=== PATIENT | female | born 1995 | race Hispanic/Latino ===

== ENCOUNTER 2018-08-24 01:13 | Emergency (ER) | payer OTHER, SELFPAY ==
[2018-08-24 02:27] LABS: Absolute Lymphocytes (CBC) 1.3 K/uL (0.7-4.9); Absolute Monocytes 0.6 K/uL (0.1-1.3); Absolute Neutrophil 4.9 K/uL (1.8-8.0); Basophils % 0.2 % (0-1.3); Eosinophils % 0.6 % (0-4.4); Hematocrit 37.6 % (36.0-45.0); Lymphocytes % 18.6 % (15.3-44.8); MPV 7.5 fL (7.6-11.3); Monocytes % 8.8 % (3.3-12.3); RBC Red Blood Cell Count 4.85 M/uL (3.86-4.86)
[2018-08-24] MEDS ORDERED: MEPERIDINE HCL 50 MG/ML AMP ONE (02:28)
[2018-08-24] MEDS ORDERED: ONDANSETRON 4 MG/2 ML VIAL ONE (02:28)
[2018-08-24 02:46] LABS: Alkaline Phosphatase 135 U/L (45-117); BUN Blood Urea Nitrogen 13 mg/dL (7-18); Bicarbonate 27 mmol/L (21-32); Bilirubin Direct 0.4 mg/dL (0-0.2); Glucose Level 99 mg/dL (74-106); Lipase 87 U/L (73-393); Protein, Total 8.3 g/dL (6.4-8.2); Sodium Level 138 mmol/L (136-145)
[2018-08-24 02:48] LABS: ALT/SGPT 382 U/L (12-78); AST/SGOT 524 U/L (15-37)
--- NOTE | 2018-08-24 04:26 | ER ---
Nurse's Notes [facility] Name: Natalie Chris Age: 22 yrs Sex: Female : 1995 Arrival Date: 08/24/2018 Time: 01:26 Bed 16 Private MD: Diagnosis: Acute cholecystitis. Cholelitthiasis. Elevated liver functions Presentation: 08/24 01:49 Presenting complaint: Patient states: epigastric pain 8/10 scale. characterized as rv sharp pain. started after eating 4pm yesterday. vomited, took tums and maalox, and tylenol for pain. tried to eat again, vomited again after. also had episodes of diarrhea. one week ago, was seen on another facility for the same symptoms. diiagnosed as UTI, given antibiotic treatment after discharge. Transition of care: patient was not received from another setting of care. Onset of symptoms was August 23, 2018 at 16:00. Risk Assessment: Do you want to hurt yourself or someone else? Patient reports no desire to harm self or others. Care prior to arrival: None. 01:49 Method Of Arrival: Ambulatory rv 01:49 Acuity: CHANA 3 rv 02:25 Initial Sepsis Screen: Does the patient meet any 2 criteria? No. Patient's initial jd3 sepsis screen is negative. Does the patient have a suspected source of infection? No. Patient's initial sepsis screen is negative. Triage Assessment: 01:54 General: Appears in no apparent distress. uncomfortable, Behavior is calm, cooperative. rv Pain: Complains of pain in epigastric Pain currently is 8 out of 10 on a pain scale. Quality of pain is described as sharp. EENT: No signs and/or symptoms were reported regarding the EENT system. Neuro: Level of Consciousness is awake, alert, obeys commands, Oriented to person, place, time, situation. Cardiovascular: Patient's skin is warm and dry. Respiratory: Airway is patent. GI: Abdomen is round non-distended, Reports upper abdominal pain, diarrhea, nausea, vomiting. : No signs and/or symptoms were reported regarding the genitourinary system. Derm: Skin is intact. Musculoskeletal: No signs and/or symptoms reported regarding the musculoskeletal system. DEPUTY K 9: 01:53 LMP 07/16/2018 rv Historical: - Allergies: 01:54 No Known Allergies; rv - Home Meds: 01:54 None [Active]; rv - PMHx: 01:54 None; rv - PSHx: 01:54 ; rv - Immunization history:: Adult Immunizations up to date. - Social history:: Smoking status: Patient/guardian denies using tobacco, never smoked. - Ebola Screening: : No symptoms or risks identified at this time. Screenin:53 Abuse screen: Denies threats or abuse. Nutritional screening: No deficits noted. jd3 Tuberculosis screening: No symptoms or risk factors identified. Fall Risk Ambulatory Aid- None/Bed Rest/Nurse Assist (0 pts). Gait- Normal/Bed Rest/Wheelchair (0 pts) Mental Status- Oriented to own ability (0 pts). Total Mathis Fall Scale indicates No Risk (0-24 pts). Assessment: 01:50 General: Appears in no apparent distress. uncomfortable, Behavior is calm, cooperative, jd3 appropriate for age. Pain: Complains of pain in right upper quadrant and left upper quadrant Quality of pain is described as sharp, tender. Neuro: Level of Consciousness is awake, alert, obeys commands, Oriented to person, place, time, situation, Appropriate for age. Cardiovascular: Capillary refill < 3 seconds Patient's skin is warm and dry. Respiratory: Airway is patent Respiratory effort is even, unlabored, Respiratory pattern is regular, symmetrical. GI: Abdomen is round non-distended, Bowel sounds present X 4 quads. Abd is soft Abdomen is tender to palpation in right upper quadrant and left upper quadrant Reports diarrhea, nausea, vomiting. : No signs and/or symptoms were reported regarding the genitourinary system. EENT: No signs and/or symptoms were reported regarding the EENT system. Derm: Skin is intact, Skin is dry, Skin is normal, Skin temperature is warm. Musculoskeletal: Circulation, motion, and sensation intact. Range of motion: intact in all extremities. 03:05 Reassessment: Patient appears in no apparent distress at this time. Patient and/or jd3 family updated on plan of care and expected duration. Pain level reassessed. Patient is alert, oriented x 3, equal unlabored respirations, skin warm/dry/pink. Patient states feeling better. 04:31 Reassessment: Patient appears in no apparent distress at this time. Patient and/or jd3 family updated on plan of care and expected duration. Pain level reassessed. Patient is alert, oriented x 3, equal unlabored respirations, skin warm/dry/pink. Patient states feeling better. 04:55 Reassessment: report given to Noris ALARCON at [facility]. jd3 Vital Signs: 01:53 BP 128 / 88; Pulse 73; Resp 17; Temp 98.1; Pulse Ox 100% ; Weight 81.65 kg; Height 5 rv ft. 1 in. (154.94 cm); Pain 8/10; 03:05 BP 125 / 88; Pulse 65; Resp 17 S; Pulse Ox 100% on R/A; jd3 04:28 BP 105 / 63; Pulse 82; Resp 16 S; Pulse Ox 98% on R/A; jd3 05:03 BP 110 / 61; Pulse 76; Resp 17 S; Pulse Ox 99% on R/A; jd3 01:53 Body Mass Index 34.01 (81.65 kg, 154.94 cm) rv ED Course: 01:26 Patient arrived in ED. am2 01:47 Sander Mustafa, AGNES is Primary Nurse. jd3 01:53 Triage completed. rv 01:53 Patient has correct armband on for positive identification. Bed in low position. Call jd3 light in reach. Side rails up X 1. Adult w/ patient. 01:53 Arm band placed on. jd3 01:55 Inserted saline lock: 20 gauge in left antecubital area, using aseptic technique. Blood jd3 collected. [facility]. 01:58 Marcello Samano MD is Attending Physician. pkl 02:47 Notified ED physician of a critical lab result(s). ast of 524, alt of 382. fc 04:11 CT Abd/Pelvis - W/Contrast In Process Unspecified. EDMS 04:56 No provider procedures requiring assistance completed. Patient transferred, IV remains jd3 in place. Administered Medications: 02:25 Drug: Demerol 50 mg Route: IVP; Site: left antecubital; jd3 03:25 Follow up: Response: No adverse reaction jd3 02:25 Drug: Zofran 4 mg Route: IVP; Site: left antecubital; jd3 03:25 Follow up: Response: No adverse reaction jd3 04:43 Drug: NS 0.9% 1000 ml Route: IV; Rate: 125 ml/hr; Site: left antecubital; jd3 05:03 Follow up: Response: No adverse reaction; IV Status: Infusion continued upon transfer jd3 04:45 CANCELLED (Other Intervention Used): Mefoxin 1 grams IVPB once over 30 mins; (mix in 50 jd3 mL NS) 04:46 Drug: Mefoxin 1 grams Route: IVPB; Infused Over: 5 mins; Site: left antecubital; jd3 05:01 Follow up: Response: No adverse reaction; IV Status: Completed infusion; IV Intake: [id number] Intake: 05:01 IV: 10ml; Total: 10ml. jd3 Outcome: 04:25 ER care complete, transfer ordered by . pkl 05:30 Transferred by ground EMS to [facility], Transfer form jd3 completed. X-rays sent w/ patient. Note: report given to [facility] 05:30 Condition: stable 05:30 Instructed on the need for transfer, Demonstrated understanding of instructions. 05:31 Patient left the ED. jd3 Signatures: Dispatcher [employer] EDMS Marcello Samano MD MD pkImra García, RN RN Sarah Mcgee Jonathon, RN RN jLouis Manzo, RN RN rv Corrections: (The following items were deleted from the chart) 02:25 01:55 Inserted saline lock: 20 gauge in right antecubital area, using aseptic jd3 technique. Blood collected. finished goods planner jd3 04:31 03:05 Reassessment: Patient appears in no apparent distress at this time. Patient jd3 and/or family updated on plan of care and expected duration. Pain level reassessed. Patient is alert, oriented x 3, equal unlabored respirations, skin warm/dry/pink. jd3 04:45 04:40 Mefoxin 1 grams IVPB in left antecubital over 30 mins jd3 jd3
--- NOTE | 2018-08-24 04:26 | EDPHYS ---
Physician Documentation [facility] Name: Natalie Chris Age: 22 yrs Sex: Female : 1995 Arrival Date: 08/24/2018 Time: 01:26 Bed 16 Private MD: ED Physician Marcello Samano HPI: 08/24 02:10 This 22 yrs old Female presents to ER via Ambulatory with complaints of pkl Abdominal Pain. 02:10 The patient presents with abdominal pain in the upper abdomen. Onset: The pkl symptoms/episode began/occurred today, 10 hour(s) ago. The symptoms do not radiate. Associated signs and symptoms: Pertinent positives: nausea and vomiting. GANG RIDER: 01:53 LMP 07/16/2018 rv Historical: - Allergies: 01:54 No Known Allergies; rv - Home Meds: 01:54 None [Active]; rv - PMHx: 01:54 None; rv - PSHx: 01:54 ; rv - Immunization history:: Adult Immunizations up to date. - Social history:: Smoking status: Patient/guardian denies using tobacco, never smoked. - Ebola Screening: : No symptoms or risks identified at this time. ROS: 02:10 Eyes: Negative for injury, pain, redness, and discharge, ENT: Negative for injury, pkl pain, and discharge, Neck: Negative for injury, pain, and swelling, Cardiovascular: Negative for chest pain, palpitations, and edema, Respiratory: Negative for shortness of breath, cough, wheezing, and pleuritic chest pain. 02:10 Abdomen/GI: Positive for abdominal pain, nausea and vomiting, of the right upper quadrant and left upper quadrant. 02:10 Back: Negative for acute changes. 02:10 : Negative for urinary symptoms. 02:10 MS/extremity: Negative for acute changes. 02:10 Skin: Negative for rash. 02:10 Neuro: Negative for altered mental status. Exam: 02:10 Head/Face: Normocephalic, atraumatic. Eyes: Pupils equal round and reactive to light, pkl extra-ocular motions intact. Lids and lashes normal. Conjunctiva and sclera are non-icteric and not injected. Cornea within normal limits. Periorbital areas with no swelling, redness, or edema. ENT: Nares patent. No nasal discharge, no septal abnormalities noted. Tympanic membranes are normal and external auditory canals are clear. Oropharynx with no redness, swelling, or masses, exudates, or evidence of obstruction, uvula midline. Mucous membranes moist. Neck: Trachea midline, no thyromegaly or masses palpated, and no cervical lymphadenopathy. Supple, full range of motion without nuchal rigidity, or vertebral point tenderness. No Meningismus. Chest/axilla: Normal chest wall appearance and motion. Nontender with no deformity. No lesions are appreciated. Cardiovascular: Regular rate and rhythm with a normal S1 and S2. No gallops, murmurs, or rubs. Normal PMI, no JVD. No pulse deficits. Respiratory: Lungs have equal breath sounds bilaterally, clear to auscultation and percussion. No rales, rhonchi or wheezes noted. No increased work of breathing, no retractions or nasal flaring. 02:10 Abdomen/GI: Bowel sounds: normal, Palpation: soft, mild abdominal tenderness, in the left upper quadrant. 02:10 Back: Exam negative for acute changes. 02:10 : Exam negative for acute changes. 02:10 Musculoskeletal/extremity: Exam is negative for acute changes. 02:10 Skin: Exam negative for rash. 02:10 Neuro: Orientation: is normal, Mentation: is normal, Cranial nerves: grossly normal, Motor: is normal. Vital Signs: 01:53 BP 128 / 88; Pulse 73; Resp 17; Temp 98.1; Pulse Ox 100% ; Weight 81.65 kg; Height 5 rv ft. 1 in. (154.94 cm); Pain 8/10; 03:05 BP 125 / 88; Pulse 65; Resp 17 S; Pulse Ox 100% on R/A; jd3 04:28 BP 105 / 63; Pulse 82; Resp 16 S; Pulse Ox 98% on R/A; jd3 05:03 BP 110 / 61; Pulse 76; Resp 17 S; Pulse Ox 99% on R/A; jd3 01:53 Body Mass Index 34.01 (81.65 kg, 154.94 cm) rv MDM: 01:58 Patient medically screened. pkl 04:23 Data reviewed: vital signs, nurses notes, lab test result(s), radiologic studies, CT pkl scan. 08/24 01:56 Order name: Basic Metabolic Panel [facility] 08/24 01:56 Order name: CBC with Diff jd3 08/24 01:56 Order name: Creatinine for Radiology jd3 08/24 01:56 Order name: Hepatic Function; Complete Time: 02:53 jd3 08/24 01:56 Order name: Lipase; Complete Time: 02:53 jd3 08/24 01:57 Order name: Basic Metabolic Panel; Complete Time: 02:53 EDMS 08/24 01:58 Order name: CBC with Automated Diff; Complete Time: 02:53 EDMS 08/24 01:58 Order name: Creatinine (Radiology Only); Complete Time: 02:53 EDMS 08/24 02:54 Order name: CT Abd/Pelvis - W/Contrast pkl 08/24 03:24 Order name: Urine Dipstick--Ancillary (enter results); Complete Time: 05:49 ag4 08/24 03:24 Order name: Urine --Ancillary (enter results); Complete Time: 05:49 ag4 08/24 01:56 Order name: IV Saline Lock; Complete Time: 01:55 jd3 08/24 01:56 Order name: Labs collected and sent; Complete Time: 02:02 jd3 08/24 02:11 Order name: Urine Dipstick-Ancillary (obtain specimen); Complete Time: 02:23 jd3 08/24 02:11 Order name: Urine Test (obtain specimen); Complete Time: 02:23 jd3 Administered Medications: 02:25 Drug: Demerol 50 mg Route: IVP; Site: left antecubital; jd3 03:25 Follow up: Response: No adverse reaction jd3 02:25 Drug: Zofran 4 mg Route: IVP; Site: left antecubital; jd3 03:25 Follow up: Response: No adverse reaction jd3 04:43 Drug: NS 0.9% 1000 ml Route: IV; Rate: 125 ml/hr; Site: left antecubital; jd3 05:03 Follow up: Response: No adverse reaction; IV Status: Infusion continued upon transfer jd3 04:45 CANCELLED (Other Intervention Used): Mefoxin 1 grams IVPB once over 30 mins; (mix in 50 jd3 mL NS) 04:46 Drug: Mefoxin 1 grams Route: IVPB; Infused Over: 5 mins; Site: left antecubital; jd3 05:01 Follow up: Response: No adverse reaction; IV Status: Completed infusion; IV Intake: [id number] Disposition: 08/24/18 04:25 Transfer ordered to [facility]. Diagnosis is Acute cholecystitis. Cholelitthiasis. Elevated liver functions. - Reason for transfer: Higher level of care. - Accepting physician is Dr. Giron. - Condition is Stable. - Problem is new. - Symptoms have improved. Signatures: Dispatcher [employer] EDMarcello Coulter MD MD pkSander Rosario RN RN jLouis Manzo RN RN rv Corrections: (The following items were deleted from the chart) 04:45 04:26 Mefoxin 1 grams IVPB once over 30 mins; (mix in 50 mL NS) ordered. pkl jd3 04:45 04:45 Mefoxin 1 grams IVPB once over 30 mins; (mix in 50 mL NS) given. jd3 jd3 04:45 04:45 Mefoxin 1 grams IVPB once over 30 mins; (mix in 50 mL NS) ordered. jd3 jd3 05:31 04:25 08/24/2018 04:25 Transfer ordered to [facility]. Diagnosis is Acute jd3 cholecystitis. Cholelitthiasis. Elevated liver functions. Reason for transfer: Higher level of care. Accepting physician is Dr. Giron. Condition is Stable. Problem is new. Symptoms have improved. pkl
[2018-08-24 04:44] LABS: Urine Blood TRACE (NEG); Urine Glucose NEGATIVE (NEG); Urine Protein NEGATIVE (NEG); Urine Specific Gravity 1.015 (1.005-1.030); Urine pH 8.5 (5.0-7.0)
[2018-08-24] MEDS ORDERED: NA CHLORIDE 0.9% 1,000 ML ONE (04:49)
[2018-08-24] MEDS ORDERED: CEFOXITIN/SWI 1gm 1 GM/10 ML SYR ONE (04:49)
[2018-08-24 05:37] VITALS: TEMP 98.1
[2018-08-24 05:41] VITALS: BP 110/61; O2SAT 99
--- NOTE | 2018-08-27 11:33 | RAD REPORT ---
EXAM DESCRIPTION: CT Abdomen and Pelvis With Intravenous Contrast CLINICAL HISTORY: The patient is 22 years old and is Female; ABD PAIN TECHNIQUE: Axial computed tomography images of the abdomen and pelvis with intravenous contrast. S agittal and coronal reformatted images were created and reviewed. This CT exam was performed using one or more of the following dose reduction techniques: automated exposure control, adjustment of t he mA and/or kV according to patient size, and/or use of iterative reconstruction technique. COMPARISON: No relevant prior studies available. FINDINGS: LUNG BASES: Minimal dependent densities in the lung bases are present. ABDOMEN: LIVER: There is a diffuse decrease in hepatic parenchymal density, consistent with fatty infiltr ation. GALLBLADDER AND BILE DUCTS: The gallbladder is distended with gallstones present. Pericholecysti c inflammation/wall thickening is also suggested. Mild biliary dilatation is present. PANCREAS: No ductal dilation. No mass. SPLEEN: Unremarkable. ADRENALS: Unremarkable. No mass. KIDNEYS AND URETERS: The left kidney is duplex. The kidneys enhance symmetrically. No obstructin g renal calculus is seen. STOMACH AND BOWEL: The stomach is minimally fluid filled. The small bowel is normal in caliber. Stool is present throughout the colon. There is no mucosal thickening or evidence of bowel obstructio n. PELVIS: APPENDIX: The appendix is normal in caliber without surrounding inflammation. BLADDER: Unremarkable. No mass. REPRODUCTIVE: Unremarkable as visualized. ABDOMEN and PELVIS: INTRAPERITONEAL SPACE: Trace free fluid is present within the pelvis which is likely physiologic . No free air. BONES/JOINTS: No acute fracture. SOFT TISSUES: The soft tissues are normal. VASCULATURE: Unremarkable. No abdominal aortic aneurysm. LYMPH NODES: Unremarkable. No enlarged lymph nodes. IMPRESSION: Cholelithiasis with findings concerning for acute cholecystitis. Electronically signed by: Natahsa Traore MD 08/24/2018 3:49 AM CDT Due to temporary technical issues with the PACS/Fluency reporting system, reports are being signed by the in house radiologist as a courtesy to ensure prompt reporting. The interpreting radiologist is f ully responsible for the content of the report.
== END 2018-08-24 05:31 | disposition short-term general hospital (02) ==
LOC: ER 01:13
DX: K80.00 Calculus of gallbladder with acute cholecystitis without obstruction (principal); R79.89 Other specified abnormal findings of blood chemistry
CPT/HCPCS: 36415; 74177; 80048; 80076; 81003; 81025; 83690; 85025; 96374; 96375; 99285; J2175; J2405; J7030; Q9967